=== PATIENT | female | born 2000 | race Caucasian/White ===

== ENCOUNTER 2022-11-30 16:38 | Emergency (ER) | payer MEDICAID ==
[~2022-11-30] VITALS: Ht 157.5 cm; Wt 97.1 kg
[2022-11-30 16:42] VITALS: BP 136/75
--- NOTE | 2022-11-30 17:00 | NUR ---
22 Y/O FEMALE C/O COLD S/S EPIGASTRIC PAIN, SUBJECTIVE FEVERS, CHILLS, NAUSEA, MYALGIA, SORE THROAT, PRODUCTIVE COUGH, RUNNY [id number], PER PT HER SISTER IS SICK WITH THE SAME S/S NKA PMH: DENIES
[2022-11-30] MEDS ORDERED: ALBU0.0912 INH (18:17)
[2022-11-30] MEDS ORDERED: ACET-10509 PO (18:17)
[2022-11-30] MEDS ORDERED: BENZ200C4 PO (18:17)
[2022-11-30] MEDS ORDERED: IBUP-2213 PO (18:17)
--- NOTE | 2022-11-30 18:24 | NUR ---
Patient discharged with v/s stable. Written and verbal after care instructions ABOUT UPPER RESPIRATORY INFECTION AND COUGH given and explained. Patient alert, oriented and verbalized understanding of instructions. Ambulatory with steady gait. All questions addressed prior to discharge. ID band removed. Patient advised to follow up with PMD. Rx of TYLENOL, ALBUTEROL, BENZONATATE, MOTRIN given. Patient educated on indication of medication including possible reaction and side effects. Opportunity to ask questions provided and answered.
== END 2022-11-30 18:24 | disposition home or self-care (01) ==
LOC: MED 16:38
DX: J06.9 Acute upper respiratory infection, unspecified (principal); Z20.822 Contact with and (suspected) exposure to COVID-19; Z79.899 Other long term (current) drug therapy
CPT/HCPCS: 71045; 99284

== ENCOUNTER 2022-12-28 14:18 | Emergency (ER) | payer MEDICAID ==
[~2022-12-28] VITALS: Ht 157.5 cm; Wt 81.6 kg
[~2022-12-28 14:18] MED LIST: ACET-10509 PO; ALBU0.0912 INH; BENZ200C4 PO; IBUP-2213 PO
[2022-12-28 14:29] VITALS: BP 126/77
[2022-12-28] MEDS ORDERED: LORA10TA19 PO (14:59)
--- NOTE | 2022-12-28 15:48 | NUR ---
Patient discharged with v/s stable. Written and verbal after care instructions given and explained. Patient alert, oriented and verbalized understanding of instructions. Ambulatory with steady gait. All questions addressed prior to discharge. ID band removed. Patient advised to follow up with PMD. Rx of LORATADINE given. Patient educated on indication of medication including possible reaction and side effects. Opportunity to ask questions provided and answered.
== END 2022-12-28 15:00 | disposition home or self-care (01) ==
LOC: MED 14:18
DX: J30.2 Other seasonal allergic rhinitis (principal); Z79.899 Other long term (current) drug therapy; Z79.1 Long term (current) use of non-steroidal anti-inflammatories (NSAID)
CPT/HCPCS: 99282